=== PATIENT | male | born 1995 | race Caucasian/White ===

== ENCOUNTER 2018-06-30 12:09 | Emergency (ER) | payer OTHER ==
[2018-06-30 12:33] VITALS: BP 127/71
--- NOTE | 2018-06-30 13:30 | ED Physician Documentation ---
PD HPI HEENT - Stated complaint Stated Complaint: MOUTH PX/FEVER - Chief complaint Chief Complaint: Heent - History obtained from History obtained from: Patient - History of Present Illness Timing - onset: Other (Had a right mandibular tooth pulled 9 days ago. Now since yesterday with increased pain and feels warm. Has sore throat only with swallowing.) Review of Systems Constitutional: reports: Fever (102 at home), [place] PD PAST MEDICAL HISTORY - Present Medications Home Medications: Ambulatory Orders Medication Instructions Recorded Confirmed Penicillin V Potassium 500 mg PO Q6HR #40 tablet 06/30/18 - Allergies Allergies/Adverse Reactions: Allergies Allergy/AdvReac Type Severity Reaction Status Date / Time No Known Drug Allergies Allergy Verified 06/30/18 12:32 PD ED PE NORMAL - Vitals Vital signs reviewed: Yes - General General: Alert and oriented X 3, No acute distress - HEENT HEENT: Other (Tonsillar pillars, prominent right-sided adenopathy of the neck. No exudates. The right mandibular socket is fairly red but nontender without trismus or sublingual edema.) - Neck Neck: Supple, no meningeal sign, No bony TTP - Neuro Neuro: Alert and oriented X 3, Normal speech - Psych Psych: Normal mood, Normal affect Results - Vitals Vitals: Vital Signs - 24 hr 06/30/18 12:29 Temperature 36.2 C L Heart Rate 104 H Respiratory 15 Rate Blood Pressure 127/71 O2 Saturation 99 Oxygen O2 Source Room air - Labs Labs: Laboratory Tests 06/30/18 12:30 Group A Strep Rapid Negative Departure - Departure Disposition: Home, Self Care Clinical Impression: Dental infection Condition: Good Record reviewed to determine appropriate education?: Yes Prescriptions: Penicillin V Potassium 500 mg PO Q6HR #40 tablet Comments: Return if new or if worse or if new symptoms develop. Continue ibuprofen as needed for pain or fever. Follow-up with your dentist on Tuesday.
== END 2018-06-30 13:42 | disposition home or self-care (01) ==
LOC: ED 12:09
DX: K04.7 Periapical abscess without sinus (principal)
CPT/HCPCS: 87070; 87430; 99283

== ENCOUNTER 2020-12-14 10:23 | Emergency (ER) | payer OTHER ==
[2020-12-14] MEDS ORDERED: BUFFERED LIDOCAINE 10 ML SYRINGE SUBQ STA (11:24)
[2020-12-14] MEDS ORDERED: BACITRACIN ZINC OINT 1 PACKET TOP STA (11:24)
--- NOTE | 2020-12-14 11:51 | ED Physician Documentation ---
History of Present Illness - Stated complaint Stated Complaint: RT THUMB INJ - Chief complaint Chief Complaint: Laceration - History obtained from History obtained from: Patient - Additonal information Additional information: 25yM p/w lac of R first finger while using a blade to try to cut a piece of wood today. denies other injury. tdap utd. Review of Systems Skin: reports: Laceration (s) Musculoskeletal: reports: Extremity pain Neurologic: denies: Focal weakness, Numbness PD PAST MEDICAL HISTORY - Past Medical History Past Medical History: No - Past Surgical History Past Surgical History: No - Present Medications Home Medications: Ambulatory Orders Medication Instructions Recorded Confirmed No Known Home Medications 12/14/20 12/14/20 - Allergies Allergies/Adverse Reactions: Allergies Allergy/AdvReac Type Severity Reaction Status Date / Time No Known Drug Allergies Allergy Verified 12/14/20 10:38 - Social History Does the pt smoke?: No Smoking Status: Never smoker PD ED PE NORMAL - Vitals Vital signs reviewed: Yes - General General: Alert and oriented X 3, No acute distress, Well developed/nourished - HEENT HEENT: Atraumatic, PERRL, EOMI - Derm Derm: Normal color, Warm and dry, Other (1cm avulsion/lac to R first finger at volar aspect) Results - Vitals Vitals: Oxygen O2 Source Room air Procedures - Laceration (location) Finger right Palmar Length in cm: 1 Wound type: Curved Neurovascular status: No: Sensory intact, Motor intact Tendon involvement: Tendon intact Anesthesia: Lidocaine 1% Wound preparation: Wound explored, To the base. No: FB identified Skin layer closure: Nylon, Size #-0 - enter number (4), Sutures - enter # (2) Other: Tetanus UTD PD MEDICAL DECISION MAKING - ED course ED course: 25yM p/w lac to finger, repaired without incident. rresturn precautions given. he will f.u in 14 d for suture removal. Departure - Departure Disposition: 01 Home, Self Care Clinical Impression: Laceration of thumb Condition: Good Instructions: ED Laceration All Comments: You are seen in the emergency department for laceration of your thumb. 2 stitches were placed that need to be removed in 14 days. Please return if you notice any signs of infection or if you have any new or worsening symptoms or other concerns. Discharge Date/Time: 12/14/20 12:18
[2020-12-14 12:17] VITALS: BP 135/75
== END 2020-12-14 12:18 | disposition home or self-care (01) ==
LOC: ED 10:23
DX: S61.011A Laceration without foreign body of right thumb without damage to nail, initial encounter (principal); W26.8XXA Contact with other sharp object(s), not elsewhere classified, initial encounter; Y93.89 Activity, other specified
CPT/HCPCS: 12001; 99282; 99283; A9270